=== PATIENT | male | born 1945 | race Caucasian/White ===

== ENCOUNTER 2020-02-06 21:31 | Emergency (ER) | payer MEDICARE, OTHER ==
[~2020-02-06] VITALS: Ht 188 cm; Wt 106.8 kg
[~2020-02-06 21:31] MED LIST: ALBU8HFA PO; ASPI-1; DOCU-28 PO; LOSA25TA96 PO
--- NOTE | 2020-02-06 21:51 | NUR ---
Correction on the initial resp rate, it was 20 not 10.
--- NOTE | 2020-02-06 21:57 | NUR ---
Patient is awaiting CXR. He has been seen by a provider. Awaiting protable CXR.
[2020-02-06] MEDS ORDERED: AMOX-422 PO (22:30)
[2020-02-06] MEDS ORDERED: ALBU6.7H9 INH (22:30)
[2020-02-06] MEDS ORDERED: PRED20TA PO (22:30)
--- NOTE | 2020-02-06 22:52 | NUR ---
History and treatment done by provider. Discharged home with follow up instructions anong with Rx.
[2020-02-06 22:54] VITALS: BP 128/77
== END 2020-02-06 23:01 | disposition home or self-care (01) ==
LOC: ER 21:31
DX: J44.9 Chronic obstructive pulmonary disease, unspecified (principal); I10 Essential (primary) hypertension; K21.9 Gastro-esophageal reflux disease without esophagitis; Z86.718 Personal history of other venous thrombosis and embolism; Z90.49 Acquired absence of other specified parts of digestive tract; Z60.2 Problems related to living alone; Z88.5 Allergy status to narcotic agent; Z79.2 Long term (current) use of antibiotics; Z79.899 Other long term (current) drug therapy
CPT/HCPCS: 71045; 99283

== ENCOUNTER 2020-10-03 15:12 | Emergency (ER) | payer MEDICARE, OTHER ==
[~2020-10-03] VITALS: Ht 188 cm; Wt 106.8 kg
[~2020-10-03 15:12] MED LIST changes: +ALBU6.7H9 INH
[2020-10-03 16:04] VITALS: BP 165/88
== END 2020-10-03 16:20 | disposition home or self-care (01) ==
LOC: ER 15:13
DX: B34.9 Viral infection, unspecified (principal); R43.8 Other disturbances of smell and taste; R51.9 Headache, unspecified; R05 Cough; R06.02 Shortness of breath; R53.83 Other fatigue; Z20.828 Contact with and (suspected) exposure to other viral communicable diseases; I10 Essential (primary) hypertension; J44.9 Chronic obstructive pulmonary disease, unspecified; K21.9 Gastro-esophageal reflux disease without esophagitis; Z87.01 Personal history of pneumonia (recurrent); Z86.718 Personal history of other venous thrombosis and embolism; Z85.9 Personal history of malignant neoplasm, unspecified; Z90.49 Acquired absence of other specified parts of digestive tract; Z98.890 Other specified postprocedural states; Z72.89 Other problems related to lifestyle; Z60.2 Problems related to living alone; Z88.5 Allergy status to narcotic agent; Z79.899 Other long term (current) drug therapy
CPT/HCPCS: 36415; 99282

== ENCOUNTER 2022-07-27 16:21 | Emergency (ER) | payer BC, OTHER ==
[~2022-07-27] VITALS: Ht 188 cm; Wt 103.2 kg
[2022-07-27 16:35] VITALS: BP 155/77
== END 2022-07-27 19:10 | disposition left against medical advice (07) ==
LOC: ER 16:22
DX: R05.9 Cough, unspecified (principal); Z53.21 Procedure and treatment not carried out due to patient leaving prior to being seen by health care provider
CPT/HCPCS: 71046